=== PATIENT | female | born 1955 | race African-American/Black ===

== ENCOUNTER 2024-06-09 02:49 | Inpatient (IN) | payer MEDICARE, OTHER, SELFPAY ==
[2024-06-08 19:05] VITALS: BP 164/91
[2024-06-08 19:30] LABS: % Basophils 0.5 % (0-2); % Immature Granulocytes 0.2 % (0-0.5); % Lymphocytes 44.4 % (20.5-51.1); % Monocytes 14.4 % (1.7-9.3); % Neutrophils 39.5 % (42.2-75.2); Absolute Lymphocytes 1.8 10^3/uL (1.2-3.4); Absolute Monocytes 0.6 10^3/uL (0.1-0.6); Absolute Neutrophils 1.6 10^3/uL (1.4-6.5); Hematocrit 37.6 % (37.0-47.0); Hemoglobin 12.5 g/dL (12.0-16.0); Mean Corp Hgb Conc. 33.2 g/dL (33.0-37.0); Mean Corpuscular Volume 93.3 fL (81.0-99.0); Mean Platelet Volume 10.7 fL (7.4-10.4); Nucleated Red Blood Cells % 0 %; Platelet Count 175 10^3/uL (130-400); Red Blood Cell Count 4.03 10^6/uL (4.20-5.40); Red Cell Dist. Width 13.8 % (11.5-14.5)
[2024-06-08 19:40] LABS: ALT (SGPT) 17 U/L (0-35); AST (SGOT) 25 U/L (14-36); Albumin 4.2 g/dl (3.5-5.0); Alkaline Phosphatase 62 U/L (38-126); Blood Urea Nitrogen 13 mg/dl (7-17); Calcium 9.1 mg/dl (8.4-10.2); Carbon Dioxide 28 mmol/L (22-30); Chloride 104 mmol/L (98-107); Glucose 151 mg/dl (70-99); Potassium 3.7 mmol/L (3.5-5.1); Sodium 143 mmol/L (135-145); Total Bilirubin 0.3 mg/dl (0.2-1.3); Total Protein 7.7 g/dl (6.3-8.2); eGFR > 60.00
[2024-06-08 19:48] LABS: COVID-19 Antigen Negative (Negative)
[2024-06-08] MEDS: ZOFRAN 4 MG PO (22:21)
[2024-06-08 22:23] VITALS: BP 160/87
[2024-06-08 22:26] VITALS: BMI 38.9
[2024-06-08 22:30] LABS: Urine Albumin Negative (Neg - Trace); Urine Bilirubin Negative (Negative); Urine Character Slightly Cloudy (Clear); Urine Color Yellow; Urine Glucose Negative (Negative); Urine Ketone Negative (Negative); Urine Leukocyte 2+ (Negative); Urine Nitrite Negative (Negative); Urine Occult Blood 3+ (Negative); Urine Urobilinogen Negative (Neg - 1+)
[2024-06-08 23:12] LABS: Urine Bacteria Moderate (Negative); Urine Red Blood Cell 50-60 /HPF (0-2); Urine White Cell 26-30 /HPF (0-5)
--- NOTE | 2024-06-08 23:20 | ED.GENMED ---
History of Present Illness
General
Chief Complaint: Urinary Symptoms
Source: patient
Exam Limitations: none
Time Seen by Provider: 06/08/24 21:13
Nursing documentation reviewed up to this point in time: agreed with
History of Present Illness
History of Present Illness:
Patient to ED with complaint of n/v, low back pain. Symptoms started this afternoon. Brought self to eD for eval.
Past History
Past History
ED Past Medical History: None
ED Past Surgical History: Appendectomy, Tonsilectomy and Other (History of myomectomy and knee surgery)
Social History
Tobacco: Non-smoker
Alcohol: None
Drug: None
Living: with family
Employment: Employed
Review of Systems
Review of Systems
Allergies reviewed?: Yes
All Other Systems: ROS reviewed and negative except as documented in HPI and ROS
Constitutional: Reports no symptoms
EENT: Reports no symptoms
Respiratory: Reports no symptoms
Cardiac: Reports no symptoms
ABD/GI: Reports nausea and vomiting
: Reports flank pain
Musculoskeletal: Reports no symptoms
Skin: Reports no symptoms
Neurological: Reports no symptoms
Psychiatric: Reports no symptoms
Phy Exam
General Physical Exam
General Presentation: moderate distress
General age: appears stated age
General Skin: warm and dry
General Habitus: normal
General Mental: alert
General Hydration: appears well hydrated
Cardiovascular Exam
Cardiovascular Exam: regular rate/rhythm and no edema
Pulmonary Exam
Pulmonary Exam: lungs clear
Gastrointestinal Exam
Gastrointestinal Exam: normal bowel sounds, soft, no organomegaly, non distended and other (Right flank pain)
Musculoskeletal Exam
Musculoskeletal Exam: full ROM and neuro vasc intact
Skin Exam
Skin Exam: normal color, warm/dry and no rash
Psychiatric Exam
Psychiatric Exam: normal mood/affect
Course
Orders/Labs/Results
Orders:
Orders
06/08/24 19:15
CBC/With Diff [Complete Blood Count/With Diff] Urgent
CMP [Comprehensive Metabolic Panel] Urgent
COVID-19 Antigen Urgent
Source: Nasal Swab
Influenza A+B Rapid Molecular Urgent
NELY Source: Nasal Swab
Specimen Description:
06/08/24 21:54
CT Abd/pel Without Iv Or Oral Urgent
Comment:
Reason For Exam: right flank pain.
06/08/24 22:19
Ondansetron HCl [Zofran] 4 mg .ROUTE .[facility]
06/08/24 22:20
Urinalysis Reflex To Culture Urgent
Date Specimen was Collected: 06/08/24
Time Specimen was Collected: 22:05
Urine Microscopic Reflex Cult Urgent
Urine Culture Urgent
NELY Source: U
Specimen Description:
Date Specimen was Collected: 06/08/24
Time Specimen was Collected: 22:05
Ondansetron HCl [Zofran] 4 mg PO NOW STA
06/09/24 00:10
Cefepime HCl [Maxipime] 2,000 mg IV NOW STA
06/09/24 00:14
UROLOGY CONSULT Urgent
Consulting Provider: Greg Barnes
Was physician already notified: Yes
06/09/24 00:21
Furosemide [Lasix] 40 mg IV NOW STA
06/09/24 01:02
Admit/Transfer Patient As Directed
Co-Sign Provider:
Level of Care: Inpatient admission
Assign to:: Medical/Surgical
Physician / Group: Kuldip
Diagnosis: Ureteral Stone
Reason for Hospitalization: Ureteral Stone
Expected length of stay greater than two midnights?: Yes
ELOS- Estimated Length of Stay in days: 2
I certify the patient meets the requirements for IP care: Yes
PRN Pain Medication Management As Directed
May give lesser potent ordered pain med per pt: Yes
preference::
Protocol:: Medication orders for pain may be administered in a
manner that supports deferring to patient preference
when the pt is:
- Requesting an ordered lesser potent pain medication.
Least to most potent pain medications are defined
as: acetaminophen < NSAID < tramadol < opioids
(morphine, oxycodone, hydromorphone).
- Requesting a lesser dose of the same medication IF
ORDERED.
- Requesting a less intrusive route of administration
if both routes are prescribed by the provider (PO <
IV).
06/09/24 01:03
Code Status As Directed
Resuscitation Status: Full Code
06/09/24 01:28
0.9% Sodium Chloride 1000 ml [Nss] 1,000 ml IV 100 mls/hr
06/09/24 03:34
Acetaminophen [Tylenol] 650 mg PO Q4HPRN PRN
HYDROmorphone [Dilaudid] 0.5 mg IV Q4HPRN PRN
Ketorolac [Toradol] 15 mg IV Q6HPRN PRN
Ondansetron Injectable [Zofran] 4 mg IV Q6HPRN PRN
06/09/24 03:34
Activity As Directed
Activity Level: Ambulate
I/O [Intake/ Output] As Directed
Frequency: Per unit guidelines
Pneumatic Compression Sleeves As Directed
Type: Knee high
Strain Urine As Directed
Vital Signs As Directed
Frequency: Per unit guidelines
Oxygen Therapy [O2 Therapy] [RESP] Routine
Titrate/Wean O2 to maintain O2 sat greater than (%): 94
DX Deep Vein Thrombosis Video Routine
06/09/24 05:03
Basic Metabolic Panel IN AM
Complete Blood Count/No Diff IN AM
06/09/24 Breakfast
NPO
Allow oral meds: Yes
Allow clear liquids: Sips of Clears
06/09/24 08:00
CefTRIAXone [Rocephin] 1,000 mg IV Q24H
Tamsulosin [Flomax] 0.4 mg PO DAILY
Abnormal Lab Results
06/08/24 06/08/24
19:15 22:20
WBC 4.0 L 10^3/uL
(4.8-10.8)
RBC 4.03 L 10^6/uL
(4.20-5.40)
MPV 10.7 H fL
(7.4-10.4)
Neutrophils % 39.5 L %
(42.2-75.2)
Monocytes % 14.4 H %
(1.7-9.3)
Glucose 151 H mg/dl
(70-99)
Ur Occult Blood Reflex 3+ A
(Negative)
Leukocyte Esterase Rfl 2+ A
(Negative)
Urine RBC 50-60 A /HPF
(0-2)
Urine WBC (Reflex) 26-30 A /HPF
(0-5)
Urine Bacteria (Reflex) Moderate A
(Negative)
06/08/24 19:15
06/08/24 19:15
Vital Signs
Initial and Last Documented VS:
Initial Vital Signs
Temp Pulse Resp BP Pulse Ox
99.8 F 77 15 164/91 100
06/08/24 19:05 06/08/24 19:05 06/08/24 19:05 06/08/24 19:05 06/08/24 19:05
Last Documented Vital Signs
Temp Pulse Resp BP Pulse Ox
100.3 F 89 20 136/70 96
06/09/24 14:15 06/09/24 15:56 06/09/24 15:56 06/09/24 15:56 06/09/24 15:56
*Radiology
Radiology exam reviewed: radiology read reviewed
*Pulse Oximetry
Patient hypoxic: no
*Critical Care Note
Total Time (30-74mins, 75-104mins- exclusive of procedures): Not Applicable
Update Note
Update Note:
Patient to ED wt complaint of worsening right back and flank pain, n/v. Reports symptoms off and on for the past 2 mos. Has had repeated neg. UA. Symptoms escalated today. CT reviewed. 5mm right proximal/mid ureter stone, obstrcting with mod
hydronephrosis. UA confirms UTI. Afebrile, WBC normal. Will admit to hospitalist. Antibitiotics started in dept. IVF, zofran given with overall improvement in patient status. Dr. Barnes notified of consult via tiger text. Patient resting
comfortable. Differential includes but not limited to UTI, Pyelonephritis, renal colic, appendicitis, diverticulitis, viral illness.
ED Attending Note
-
Portions of this chart may have been created with voice recognition software.� Occasional wrong word or��sound alike� substitutions may have occurred due to the inherent limitations of voice recognition software.
Discharge Plan
Departure
Patient Disposition: Admit
Date of Disposition: 06/09/24
Time of Disposition: 00:16
Presentation/result/management discussed w/ accepting MD/DO: Hospitalist
Patient with high blood pressure during this ER visit?: No
Condition: Good
Covid-19: Not Applicable
Discharge Problem:
Kidney stone, UTI (urinary tract infection)
Interventions
Interventions:
*Risk Screen - Suicide Last Done: 06/08/24 19:05
*General Assessment Last Done: 06/08/24 19:05
*Neglect/Abuse Screening Last Done: 06/08/24 19:05
ED- Fall Risk Assessment Last Done: 06/08/24 22:03
*ED COVID-19 Vaccine History Last Done: 06/08/24 19:05
*Nursing Disposition Last Done: 06/09/24 12:21
ED-Female Genitourinary Assessment Last Done: 06/08/24 22:03
Discharge Date and Time
Discharge Date/Time: 06/09/24 11:20
[2024-06-09] VITALS (14 sets, daily range): BP systolic 108–160; BP diastolic 56–88; BMI 38.4
--- NOTE | 2024-06-09 01:05 | HPS.HSE ---
Family Physician
-
Family Physician: Tal Vincent
Chief Complaint
-
R Flank Pain
History of Present Illness
Patient is a 68y F with PMH significant for hypertension, ocular myasthenia and prior kidney stones who presents to ED complaining of R flank pain. Patient states that she developed urinary frequency and dysuria about one week ago. She
presented to an Urgent Care where UA was completed and culture is pending. She was not started on any abx at that time. Today, she developed new R flank pain with associated N/V and chills. She presented to the ED for further evaluation and
treatment.
Patient has prior history of kidney stones and notes that current symptoms are similar.
Medical History
Past Medical History
Past Medical History: Reports Other
Additional Past Medical History:
Hypertension
Obesity
Nephrolithiasis
Ocular Myasthenia
Past Surgical History: Reports Other
Additional Past Surgical History:
Appendectomy
Myomectomy
Knee Arthroscopy
Social History
Tobacco: Non-smoker
Alcohol: None
Drug: None
Family History
Family History: Not pertinent
Allergies / Home Medications
Allergies reflects when Allergies were last updated in [facility].
Home Medications with original date entered in [facility]
Allergy/Medication List:
Allergies
Allergy/AdvReac Type Severity Reaction Status Date / Time
NKA - No Known Allergies Allergy Unknown Uncoded 12/15/21 05:48
Home Medications
No Meds [No Current Medications] 06/09/24
Patient was previously on pyridostigmine for myasthenia and Celebrex as needed for arthritis pain.
She has taken neither of these medicines in a few years.
Review of Systems
-
History Source: Patient
A 12 point ROS was completed and negative except as noted: Yes
Constitutional: Reports Chills; Denies Fever or Fatigue
EENT: Denies Sore Throat
Respiratory: Denies Cough or Trouble Breathing
Cardiac: Denies Chest Pain or Palpitations
Abdomen/GI: Reports Abdominal Pain, Nausea and Vomiting; Denies Diarrhea, Constipated, Bloody Stools or Black Stools
: Reports Dysuria, Frequency and Flank Pain
Musculoskeletal: Denies Joint Pain or Edema
Neurological: Denies Dizzy or Headache
Psych: Denies Depression or Anxiety
Physical Exam
Vital Signs
Vital Signs
Temp Pulse Resp BP Pulse Ox
99.8 F 77 15 160/87 100
06/08/24 19:05 06/08/24 19:05 06/08/24 19:05 06/08/24 22:23 06/08/24 19:05
Physical Exam
General: Other (68y F in no acute distress.)
HEENT: Moist mucous membranes and PERRLA
Respiratory: Clear; No Wheezes, Rales or Rhonchi
Cardiac: S1/S2 and Regular Rhythm; No Murmur
GI: Soft, Non Tender, Non Distended and Normal Bowel Sounds
Genito-urinary: Costovertebral angle tend (Right CVAT.)
Musculoskeletal: No Clubbing, No Cyanosis and Other (Trace pedal edema bilaterally.)
Neuro: AO x 3
Laboratory Results
-
06/08/24 19:15
06/08/24 19:15
Laboratory Results
Total Bilirubin 0.3 mg/dl (0.2-1.3) 06/08/24 19:15
AST 25 U/L (14-36) 06/08/24 19:15
ALT 17 U/L (0-35) 06/08/24 19:15
Alkaline Phosphatase 62 U/L (38-126) 06/08/24 19:15
Impression/Plan
-
A/P: Patient is a 68y F with PMH significant for ocular myasthenia and prior kidney stones who presents to ED complaining of urinary symptoms x 1 week and R flank pain beginning today.
Right Ureteral Stone
- Admit for further evaluation and treatment.
- Pain control, IVFs, tamsulosin, antiemetics, etc.
- Empiric abx for now given preceding urinary symptoms.
- Strain urine and monitor for stone passage.
- Urology consult for further evaluation / recommendations.
Ocular Myasthenia
- No complaints of double vision, etc at this time.
- Would not restart pyridostigmine given absence of current symptoms.
- Follow-up with PCP / Neuro as an outpatient.
BP Elevation
- Not on any chronic antihypertensive medications.
- ? acute elevation due to pain syndrome.
- Follow for changes in BP and add medications if needed.
Obesity due to excess calories
- Affects all aspects of care.
- Encourage healthy diet and increased exercise with goal of weight loss.
DVT Prophylaxis: SCDs
Code Status: Full
[2024-06-09] MEDS: MAXIPIME 2000 MG IV (01:11)
[2024-06-09] MEDS: NSS 1000 IV ×2 (01:32→14:19)
[2024-06-09] MEDS: DILAUDID 0.5 MG IV (03:37)
[2024-06-09 05:55] LABS: Hematocrit 34.8 % (37.0-47.0); Hemoglobin 11.7 g/dL (12.0-16.0); Mean Corp Hgb Conc. 33.6 g/dL (33.0-37.0); Mean Corpuscular Hgb 31.1 pg (27.0-31.0); Mean Corpuscular Volume 92.6 fL (81.0-99.0); Platelet Count 171 10^3/uL (130-400); Red Blood Cell Count 3.76 10^6/uL (4.20-5.40); Red Cell Dist. Width 13.7 % (11.5-14.5); White Blood Cell Count 5.3 10^3/uL (4.8-10.8)
[2024-06-09] MEDS: TORADOL 15 MG IV (05:59)
[2024-06-09 06:04] LABS: Blood Urea Nitrogen 12 mg/dl (7-17); Calcium 8.9 mg/dl (8.4-10.2); Carbon Dioxide 25 mmol/L (22-30); Chloride 108 mmol/L (98-107); Estimated Creatinine Clearance 90 ml/min; Glucose 131 mg/dl (70-99); Sodium 143 mmol/L (135-145); eGFR > 60.00
[2024-06-09] MEDS: FLOMAX 0.4 MG PO (08:19)
[2024-06-09] MEDS: ROCEPHIN 1000 MG IV ×2 (08:20→13:28)
--- NOTE | 2024-06-09 09:11 | CONS.URO ---
Consultation
-
Performing Provider: Cameron
Reason for Consultation: right ureteral and renal stones
Medical History
History of Present Illness
68 female presented to ED complaining of R flank pain. She developed urinary frequency and dysuria about one week ago. She presented to an Urgent Care where UA was completed and culture is pending. She was not started on antibiotics. Last
evening, she developed acute R flank pain with associated N/V and chills, prompting her to the proceed to ED
Past Medical History
Past Medical History: Other (hypertension, ocular myasthenia and kidney stones)
Past Surgical History: Other (Appendectomy, Tonsilectomy, Myomectomy and knee surgery)
Allergies/Home Medications
Allergies
Allergy/AdvReac Type Severity Reaction Status Date / Time
NKA - No Known Allergies Allergy Unknown Uncoded 12/15/21 05:48
Home Medications
�Medication �Instructions �Recorded �Confirmed �Type
No Meds [No Current Medications] 06/09/24 06/09/24 History
Physical Exam
Vital Signs
Vital Signs
Temp Pulse Resp BP Pulse Ox
98.0 F 72 16 160/87 100
06/09/24 08:15 06/09/24 01:00 06/09/24 01:00 06/08/24 22:23 06/08/24 19:05
Lab / Testing Results
Laboratory Results
06/09/24 05:03
06/09/24 05:03
Physical Exam
adult black female
General: Well Developed and No Apparent Distress
HEENT: Normocephalic
GI: Soft and Non Distended
Genito-urinary: No Costovertebral Tend
Skin: Warm
Neuro: Awake, Alert and Oriented
Psych: Calm and Intact Judgement
Assessment / Plan
-
Right Ureteral Calculus: 8 mm, proximal, obstructing
Right Renal Calculi: 19 and 4 mm, non-obstructing
Left nephrolith
Left Renal Lesion: cyst versus mass [w/o contrast cannot be delineated]
No current objective evidence of UTI/sepsis
Will post for OR for TODAY for Right Ureteroscopy, Laser Lithotripsy, Stenting
Data Reviewed
-
CT Scan: Image personally visualized and interpreted
Lab Data: Labs Reviewed
Old Records: Reviewed
[2024-06-09] MEDS: ZOFRAN 4 MG IV (09:13)
--- NOTE | 2024-06-09 13:04 | W.IMMPOSTOP ---
Surgical Immed Post Op Note
-
Primary Surgeon: Cameron
Pre-op Diagnosis: Right ureteral stone: proximal, 8 mm, obstructing; 19 mm right lower pole [id number] renal stone; left nephrolith
Post-op Diagnosis: same plus UTI and possible evolving sepsis
Procedure Performed: right ureteroscopy, laser lithotripsy of obstructing stone and stent placement
Anesthesia Type: gen
Specimen / Cultures: stone debris for compositional analysis; urine proximal to stone for C&S
Estimated Blood Loss: negligible
Complications: febrile upon induction
Operative Findings: Right ureteral stone: proximal, 8 mm, obstructing -- pus in urine upon relief of obstruction
Right 4.7 Fr 24 cm JJ ureteral stent placed.
apprised by phone
Dr Tobias apprise via TT
[2024-06-09] MEDS: STERILE WATER FOR INJECTION 10 ML IV (13:28)
[2024-06-09] MEDS: GENTAMICIN 55 MG IV (13:42)
--- NOTE | 2024-06-09 13:44 | W.PN.UPDATE ---
Update Note
Progress Note Update
Non-billable addendum, admitted 1 AM
s/p ureteral stenting, per Urology pus urine above obstruction and recommended for IMU
seen in PACU, currently comfortable
Assessment:
Right Ureteral Stone
complicated UTI
- CT: 7 mm proximal right ureteral calculus with associated moderate right hydroureteronephrosis.
- Urology following
- s/p ureteral stenting 06/09
- continue empiric Rocephin, s/p Gent in PACU. Follow urine cultures. check blood culture.
- Pain control, IVFs, tamsulosin, antiemetics
Ocular Myasthenia
- No complaints of double vision, etc at this time.
- Would not restart pyridostigmine given absence of current symptoms.
- Follow-up with PCP / Neuro as an outpatient.
BP Elevation
- Not on any chronic antihypertensive medications.
- ? acute elevation due to pain syndrome.
- Follow for changes in BP and add medications if needed.
Obesity due to excess calories
- Affects all aspects of care.
- Encourage healthy diet and increased exercise with goal of weight loss.
DVT Prophylaxis: SCDs
Code Status: Full
[2024-06-09 14:07] LABS: Urine Albumin 1+ (Neg - Trace); Urine Bilirubin Negative (Negative); Urine Character Very Cloudy (Clear); Urine Color Yellow; Urine Glucose Trace (Negative); Urine Ketone Negative (Negative); Urine Leukocyte 2+ (Negative); Urine Nitrite Negative (Negative); Urine Occult Blood 3+ (Negative); Urine Urobilinogen Negative (Neg - 1+)
[2024-06-09 14:51] LABS: Urine Mucus Few; Urine Squamous Cell 0-2 /LPF (Few)
[2024-06-09 14:53] LABS: Urine Amorphous Seen; Urine Bacteria Few (Negative); Urine White Cell 90-100 /HPF (0-5)
--- NOTE | 2024-06-09 16:45 | PTCARENOTE ---
Received patient on admission from PACU via bed. Patient able to transfer from bed to bed by sliding over herself; she was then able to get OOB to commode and standing scale x1 assist. Patient voided willow/blood-tinged urine; IVF continue. Diet
upgraded to full liquid. See worklist for full assessment and vital signs. Using call smith appropriately.
--- NOTE | 2024-06-09 23:30 | PTCARENOTE ---
Pt received from previous RN. Pt AAO. Engaging in oriented conversation with RN. Pleasant and agreeable to care. NSR on monitor. Pt using BSC to void. Calls for assistance. Straining urine. Denies further needs at this time. Call light in reach.
[2024-06-10] VITALS (11 sets, daily range): BP systolic 121–158; BP diastolic 58–81; PULSE 71; O2SAT 99
[2024-06-10] MEDS: NSS 1000 IV (00:09)
[2024-06-10 05:23] LABS: % Basophils 0.2 % (0-2); % Immature Granulocytes 0.4 % (0-0.5); % Lymphocytes 9.5 % (20.5-51.1); % Monocytes 4.8 % (1.7-9.3); % Neutrophils 85.1 % (42.2-75.2); Absolute Immature Granulocytes 0.1 10^3/uL (0-0.05); Absolute Lymphocytes 1.1 10^3/uL (1.2-3.4); Absolute Monocytes 0.6 10^3/uL (0.1-0.6); Absolute Neutrophils 9.8 10^3/uL (1.4-6.5); Hematocrit 35.5 % (37.0-47.0); Hemoglobin 11.8 g/dL (12.0-16.0); Mean Corp Hgb Conc. 33.2 g/dL (33.0-37.0); Mean Corpuscular Hgb 31.2 pg (27.0-31.0); Mean Corpuscular Volume 93.9 fL (81.0-99.0); Mean Platelet Volume 10.9 fL (7.4-10.4); Nucleated Red Blood Cells % 0 %; Platelet Count 156 10^3/uL (130-400); Red Blood Cell Count 3.78 10^6/uL (4.20-5.40); White Blood Cell Count 11.5 10^3/uL (4.8-10.8)
[2024-06-10 06:24] LABS: Blood Urea Nitrogen 17 mg/dl (7-17); Calcium 8.7 mg/dl (8.4-10.2); Carbon Dioxide 23 mmol/L (22-30); Chloride 106 mmol/L (98-107); Estimated Creatinine Clearance 79 ml/min; Glucose 139 mg/dl (70-99); Potassium 4.1 mmol/L (3.5-5.1); Sodium 143 mmol/L (135-145); eGFR > 60.00
[2024-06-10] MEDS: FLOMAX 0.4 MG PO (08:33)
[2024-06-10] MEDS: ROCEPHIN 1000 MG IV (08:34)
[2024-06-10] MEDS: STERILE WATER FOR INJECTION 10 ML IV (08:34)
--- NOTE | 2024-06-10 08:49 | PTCARENOTE ---
Pt is AAOxx3, lungs are clear on RA at 96%, no complainta at this time.
[2024-06-10] MEDS: NSS IV (09:27)
--- NOTE | 2024-06-10 10:37 | W.PN.HOSP.TC ---
Today's Communication/Plan
-
cap IVF
continue IV Abx pending cultures
downgrade to Floors
Assessment / Plan
Assessment / Plan
Assessment:
Right Ureteral Stone
complicated UTI
- CT: 7 mm proximal right ureteral calculus with associated moderate right hydroureteronephrosis.
- Urology following
- s/p right ureteroscopy, laser lithotripsy of obstructing stone and stent placement 06/09. OP f/u for stent removal in 2-3 weeks. Patient from [place], plans to travel to [place] and back for follow up.
- continue empiric Rocephin, day 2, s/p Gent in PACU.
- Follow urine cultures
- Pain control, tamsulosin, antiemetics
- cap IVF
Ocular Myasthenia
- No complaints of double vision, etc at this time.
- Would not restart pyridostigmine given absence of current symptoms.
- Follow-up with PCP / Neuro as an outpatient.
BP Elevation
- Not on any chronic antihypertensive medications.
- ? acute elevation due to pain syndrome.
- Follow for changes in BP and add medications if needed.
Obesity due to excess calories
- Affects all aspects of care.
- Encourage healthy diet and increased exercise with goal of weight loss.
DVT Prophylaxis: SCDs
Code Status: Full
Anticipated Discharge: 24 - 48 hours
Subjective/Interval History
-
Date of Service: June 10, 2024
feels well no complaints
Objective Data
-
Labs:
Laboratory Results
06/10/24
05:05
WBC 11.5 H
Hgb 11.8 L
Hct 35.5 L
Plt Count 156
Sodium 143
Potassium 4.1
Chloride 106
Carbon Dioxide 23
BUN 17
Creatinine 0.8
Glucose 139 H
Calcium 8.7
Vital Signs:
Vital Signs
Temp Pulse Resp BP Pulse Ox
97.8 F 76 16 141/68 99
06/10/24 07:06 06/10/24 08:00 06/10/24 08:00 06/10/24 08:00 06/10/24 10:04
I&O
06/09/24 06/10/24 06/11/24
06:59 06:59 06:59
Intake Total 920 / 920
Output Total 1450 / 1450
Balance 920 / 920 -1450 / -1450
Physical Exam
-
General: No Apparent Distress
HEENT: Normocephalic and Atraumatic
Respiratory: Clear to Auscultation; Negative Wheezes
Cardiac: Regular Rhythm and S1/S2
GI: Soft and Nontender
Musculoskeletal: No Edema
Neuro: AO x 3
Hematologic / Lymphatic: No Lymphadenopathy
Psych: Calm
Data Reviewed
-
Total Time Spent with Patient (in minutes): 41
Labs: Labs Reviewed by me
--- NOTE | 2024-06-10 11:15 | PTCARENOTE ---
Offered pt to brush teeth , rrefused wants to wait for
--- NOTE | 2024-06-10 11:36 | PTCARENOTE ---
Pt for tx to 316-2 . Report given.
--- NOTE | 2024-06-10 12:15 | PTCARENOTE ---
Pt received from IMU to rm 316-2. Arrived in w/c, ambulated to bed, steady gait. Strainer and hat set up in bathroom. POC reviewed. Oriented to room and call smith. VSS. No complaints offered at this time.
[2024-06-11 07:42] VITALS: BP 140/78
[2024-06-11 07:46] LABS: % Basophils 0.2 % (0-2); % Eosinophils 0.4 % (0-6); % Immature Granulocytes 0.4 % (0-0.5); % Lymphocytes 34.3 % (20.5-51.1); % Monocytes 5.7 % (1.7-9.3); Absolute Lymphocytes 2.9 10^3/uL (1.2-3.4); Absolute Monocytes 0.5 10^3/uL (0.1-0.6); Hematocrit 34.3 % (37.0-47.0); Hemoglobin 11.1 g/dL (12.0-16.0); Mean Corp Hgb Conc. 32.4 g/dL (33.0-37.0); Mean Corpuscular Hgb 30.1 pg (27.0-31.0); Mean Platelet Volume 10.8 fL (7.4-10.4); Nucleated Red Blood Cells % 0 %; Platelet Count 173 10^3/uL (130-400); Red Blood Cell Count 3.69 10^6/uL (4.20-5.40); Red Cell Dist. Width 14.1 % (11.5-14.5); White Blood Cell Count 8.5 10^3/uL (4.8-10.8)
[2024-06-11 08:17] LABS: Blood Urea Nitrogen 21 mg/dl (7-17); Calcium 8.6 mg/dl (8.4-10.2); Carbon Dioxide 26 mmol/L (22-30); Chloride 107 mmol/L (98-107); Estimated Creatinine Clearance 79 ml/min; Glucose 103 mg/dl (70-99); Potassium 3.9 mmol/L (3.5-5.1); Sodium 144 mmol/L (135-145); eGFR > 60.00
[2024-06-11] MEDS: STERILE WATER FOR INJECTION 10 ML IV (08:18)
[2024-06-11] MEDS: FLOMAX 0.4 MG PO (08:18)
[2024-06-11] MEDS: ROCEPHIN 1000 MG IV (08:18)
--- NOTE | 2024-06-11 11:57 | W.PN.HOSP.TC ---
Today's Communication/Plan
-
dc to home
Assessment / Plan
Assessment / Plan
Assessment:
Right Ureteral Stone
complicated UTI
- CT: 7 mm proximal right ureteral calculus with associated moderate right hydroureteronephrosis.
- Urology following
- s/p right ureteroscopy, laser lithotripsy of obstructing stone and stent placement 06/09. OP f/u for stent removal in 2-3 weeks. Patient from [place], plans to travel to [place] and back for follow up.
- continue empiric Rocephin, day 3, s/p Gent in PACU. DC on Cefdinir for total 14 days
- Follow urine cultures
- prn pryridium
Ocular Myasthenia
- No complaints of double vision, etc at this time.
- Would not restart pyridostigmine given absence of current symptoms.
- Follow-up with PCP / Neuro as an outpatient.
BP Elevation
- Not on any chronic antihypertensive medications.
- ? acute elevation due to pain syndrome.
- Follow for changes in BP and add medications if needed.
Obesity due to excess calories
- Affects all aspects of care.
- Encourage healthy diet and increased exercise with goal of weight loss.
DVT Prophylaxis: SCDs
Code Status: Full
More than 30 minutes spent in discharge including
Final examination of the patient
Summarizing hospital stay
Instructions for continuing care to all relevant caregivers
Preparation of discharge records, prescriptions, and referral forms
Total time spent (in minutes): 41
Anticipated Discharge: Today
Subjective/Interval History
-
Date of Service: June 11, 2024
feels well no complaints
Objective Data
-
Labs:
Laboratory Results
06/11/24
07:27
WBC 8.5
Hgb 11.1 L
Hct 34.3 L
Plt Count 173
Sodium 144
Potassium 3.9
Chloride 107
Carbon Dioxide 26
BUN 21 H
Creatinine 0.8
Glucose 103 H
Calcium 8.6
Vital Signs:
Vital Signs
Temp Pulse Resp BP Pulse Ox
98.4 F 77 18 140/78 99
06/11/24 07:42 06/11/24 07:42 06/11/24 07:42 06/11/24 07:42 06/11/24 07:42
I&O
06/10/24 06/11/24 06/12/24
06:59 06:59 06:59
Intake Total 960 / 960
Output Total 1450 / 1450 800 / 800
Balance -1450 / -1450 160 / 160
Physical Exam
-
General: No Apparent Distress
HEENT: Normocephalic and Atraumatic
Respiratory: Negative Wheezes
Cardiac: Regular Rhythm and S1/S2
GI: Soft and Nontender
Genito-urinary: No Costovertebral Tender
Musculoskeletal: No Edema
Neuro: AO x 3
Psych: Calm
Data Reviewed
-
Total Time Spent with Patient (in minutes): 41
Labs: Labs Reviewed by me
--- NOTE | 2024-06-11 11:59 | W.DS.TRANS ---
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
-
Discharge Instructions:
Discharge Diagnosis/Procedures kidney stone, UTI s/p stent/stone removal 06/09
Diet Regular
Activity As tolerated
Bathing Restrictions None
Instructions:
Stand-Alone Forms:
Changes to Home Medications: No
Discharge Medications:
DC Medications w/original date entered in [facility]
cefdinir 300 mg capsule 300 mg PO BID #22 caps 06/11/24
phenazopyridine 200 mg tablet (Pyridium) 200 mg PO TID PRN urinary/stent pain #20 tabs 06/11/24
Home Medication Changes
Pending Results: No
Total time spent discharging patient (in min): 41
--- NOTE | 2024-06-11 13:47 | CM ---
Reviewed chart, met with patient to obtain information for assessment. Patient stated that she lives alone in a two story townhouse. Two steps to enter. She stated that she stays in [place] as well as her home in [place] to be near family. Patient
described herself as independent with her ADLs,s personal care, dressing and bathing. 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 Patient can drive and transports herself to her appointments and does all her own shopping.
Patient denied any DME
She has never had VN services
She has never been to a SNF
Patient has a prescription plan and uses, [facility] on [address]
She is in the process of getting a new PCP.
Patient stated that she can transport herself home. She is medically cleared for discharged. She signed IMM, Now on chart.
Plan: Case management will continue to follow and assist with discharge planning. Home.
== END 2024-06-11 13:54 | disposition home or self-care (01) | DRG 661 ==
LOC: 3 WEST ACU 02:49
PROVIDERS: Emergency Medicine; Nurse Practitioner; ADMITTING PHYSICIAN Hospitalist; ATTENDING PHYSICIAN Internal Medicine; CONSULT PHYSICIAN Specialist; EMERGENCY PHYSICIAN Emergency Medicine; FAMILY PHYSICIAN Family Medicine
PROC: 0T768DZ Dilation of Right Ureter with Intraluminal Device, Via Natural or Artificial Opening Endoscopic (ICD-10-PCS; 2024-06-09)
PROC: 0TC68ZZ Extirpation of Matter from Right Ureter, Via Natural or Artificial Opening Endoscopic (ICD-10-PCS; 2024-06-09)
DX: N13.6 Pyonephrosis (principal); I10 Essential (primary) hypertension; E66.09 Other obesity due to excess calories; Z68.38 Body mass index [BMI] 38.0-38.9, adult; B96.4 Proteus (mirabilis) (morganii) as the cause of diseases classified elsewhere; G70.00 Myasthenia gravis without (acute) exacerbation; R03.0 Elevated blood-pressure reading, without diagnosis of hypertension; Z87.442 Personal history of urinary calculi
CPT/HCPCS: 74018; 74176; 76000; 80048; 80053; 81003; 81015; 82365; 85025; 85027; 87040; 87077; 87086; 87186; 87502; 87811; 97116; 97162; 97166; 97535; C1894; C2617

== ENCOUNTER → 2024-06-24 06:30 | Day surgery (SDC) | payer MEDICARE, OTHER, SELFPAY | LOC: SDSPAT 06:30 | PROVIDERS: ATTENDING PHYSICIAN Specialist | DX: Z01.810 Encounter for preprocedural cardiovascular examination (principal); I49.1 Atrial premature depolarization | CPT/HCPCS: 93005 ==

== ENCOUNTER 2024-06-25 06:23 | Day surgery (SDC) | payer MEDICARE, OTHER, SELFPAY ==
[2024-06-24 09:25] VITALS: BMI 38.3
[2024-06-25] VITALS (8 sets, daily range): BP systolic 123–158; BP diastolic 72–97; BMI 38.3
[2024-06-25] MEDS: ZOFRAN 4 MG IV (10:43)
--- NOTE | 2024-06-25 11:33 | SUR.PHASEI ---
medicated for nausea with some relief. vss, no pain, refuses further med - wants to use bathroom. Discharge to [facility] with report
== END 2024-06-25 12:30 | disposition home or self-care (01) ==
LOC: SDS 06:23
PROVIDERS: ATTENDING PHYSICIAN Specialist
DX: N20.0 Calculus of kidney (principal); N39.0 Urinary tract infection, site not specified; B96.4 Proteus (mirabilis) (morganii) as the cause of diseases classified elsewhere
CPT/HCPCS: 52356; 74018; 76000; C1894; C2617; J1580